=== PATIENT | male | born 1980 | race Caucasian/White ===

== ENCOUNTER 2024-11-30 14:40 | Emergency (ER) | payer OTHER, SELFPAY ==
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
--- OUTSIDE RECORDS SUMMARY | 2024-11-30 14:42 | XMS_ITS | Clinical Summary ---
Author Organization [facility] Address [address] [place] [address] Care Team Providers Care Home Lending Officer Name Role Phone Jemal Hoffmann MD Primary Care Provider [phone] Source Comments [facility],non-owned Affiliates and Associated Physician Practices is amultiple site organization consisting of ambulatory clinics and hospital sitesin [place], [place], [place] and [place]. This disclosure is being madepursuant to the Care Everywhere program and may not contain all information available regarding this patient. Last updated 18.[facility] Allergies No known active allergies Medications * Be aware that medications may not be up to date on this document. Alwaysverify current medications with the patient. hydrocodone-acet aminophen (VICODIN) 5-500 MG tablet Take 1-2 Tabs by mouth 4 times daily as needed for Pain. 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 Gender Identity Not on file Sexual Orientation Not on file Last Filed Vital Signs Vital Sign Reading Time Taken Comments Blood Pressure 140/88 09/04/2010 5:03 PM CDT Pulse 78 09/04/2010 5:03 PM CDT Temperature 36.9 C (98.5 F) 09/04/2010 3:12 PM CDT Respiratory Rate 18 09/04/2010 5:03 PM CDT Oxygen Saturation 99% 09/04/2010 5:03 PM CDT Inhaled Oxygen Concentration - - Weight 117.9 kg (260 lb) 09/04/2010 3:12 PM CDT Height 180.3 cm (5' 11) 09/04/2010 3:12 PM CDT Body Mass Index 36.26 09/04/2010 3:12 PM CDT Plan of Treatment Health Maintenance Due Date Last Done Comments LIPID TESTING 1980 HIV SCREENING 09/23/1995 HEPATITIS C SCREENING 09/18/1998 DTAP/TDAP/TD VACCINES (1 - Tdap) 09/23/1999 HEPATITIS B VACCINE (1 of 3 - 19+ 3-dose series) 09/23/1999 HPV VACCINE (1 - 3-dose SCDM series) 09/23/2007 COVID-19 VACCINE ( - 2023-2 5 season) 2023 DEPRESSION SCREENING 04/23/2024 INFLUENZA VACCINE (#1) 2024 ZOSTER VACCINE (1 of 2) 2030 HIB VACCINE Aged Out No longer eligi ble based on patient's age to complete this topic MENINGOCOCCAL (Group B) VACC INE SHARED DECISION-MAKING Aged Out No longer eligibl e based on patient's age to complete this topic MENINGOCOCCAL GROUPS A/C/Y/W VACCINE Aged Out No longer eligible b ased on patient's age to complete this topic PNEUMOCOCCAL VACCINE Aged Out No long er eligible based on patient's age to complete this topic Care Teams Home Lending Officer Relationship Specialty Start Date End Date Jemal Hoffmann MD [address] [place] [address] PCP - General 09/04/10
[2024-11-30 14:51] VITALS: BP 175/113; PULSE 95; RESP 18; TEMP 36.3; O2SAT 97
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
[2024-11-30] MEDS: diazePAM INJ (*CRX) 10 MG/2 ML SYRINGE 5 MG IV PUSH (16:54)
[2024-11-30] MEDS: ACETAMINOPHEN 500 MG TABLET 1000 MG PO (16:54)
[2024-11-30 16:57] LABS: Hematocrit 42.8 % (42.0-52.0); Hemoglobin 14.3 g/dL (14.0-18.0); Immature Granulocyte Percent A 0.4 % (0-0.5); Lymphocytes Absolute Auto 1.89 K/mm3 (0.9-3.2); Mean Corpuscular HGB Conc 33.4 g/dl (32-36); Mean Corpuscular Hemoglobin 29.0 pg (26-34); Mean Corpuscular Volume 86.8 fl (80-100); Nucleated Red Blood Cells Absolute Auto 0.000 K/mm3 (0.0-0.012); Nucleated Red Blood Cells Perc 0.0 % (0.0-0.2); Platelet Count Result 276 k/mm3 (150-375); Red Blood Count 4.93 M/mm3 (4.6-6.20); White Blood Count 6.8 K/mm3 (4.5-10.0)
[2024-11-30 16:58] VITALS: BP 162/106; PULSE 88; RESP 20; O2SAT 97
[2024-11-30 17:05] LABS: Alanine Aminotransferase 29 U/L (6-50); Albumin Level 4.2 g/dL (3.5-5.1); Alkaline Phosphatase 96 U/L (38-126); Anion Gap 6 mmol/L (4-12); Aspartate Amino Transferase 28 U/L (17-59); Bilirubin,Total 0.6 mg/dL (0.2-1.3); Blood Urea Nitrogen 9 mg/dL (9-20); Calcium 9.0 mg/dL (8.4-10.2); Carbon Dioxide 27 mmol/L (22-30); Chloride 105 mmol/L (98-107); Estimated CRCL calculation 132 ml/min; Estimated Glomerular Filt Rate > 60; Glucose 110 mg/dL (65-110); Potassium 3.2 mmol/L (3.4-5.0); Sodium 138 mmol/L (137-145); Total Protein 7.7 g/dL (6.3-8.2)
[2024-11-30 17:22] LABS: Magnesium 2.2 mg/dL (1.6-2.3)
[2024-11-30] MEDS: POTASSIUM CHLORIDE 20 MEQ ER TABLET 40 MEQ PO (17:40)
--- NOTE | 2024-11-30 17:43 | PC.NURSE ---
Per josep Hernandez to give pt food. Pt provided with a sandwich, drink, and snacks. Updated on POC. Pt continues to deny pain.
--- OUTSIDE RECORDS SUMMARY | 2024-11-30 18:05 | XMS_ITS | Clinical Summary ---
Author Organization [facility] [place] Address [address] [place] [address] Care Team Providers Care Commissions Specialist Name Role Phone Jemal Hoffmann MD Primary Care Provider [phone] Source Comments [facility],non-owned Affiliates and Associated Physician Practices is amultiple site organization consisting of ambulatory clinics and hospital sitesin [place], [place], [place] and [place]. This disclosure is being madepursuant to the Care Everywhere program and may not contain all information available regarding this patient. 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
[2024-11-30 18:24] VITALS: BP 175/99; PULSE 85; RESP 18; O2SAT 98
[2024-11-30 20:09] VITALS: BP 174/90; PULSE 81; RESP 17; O2SAT 100
== END 2024-11-30 20:11 | disposition home or self-care (01) ==
PROVIDERS: Emergency Provider Physician Assistant; PCP Family Medicine
DX: S53.401A Unspecified sprain of right elbow, initial encounter (principal); E87.6 Hypokalemia; V48.5XXA Car driver injured in noncollision transport accident in traffic accident, initial encounter; S22.080A Wedge compression fracture of T11-T12 vertebra, initial encounter for closed fracture
CPT/HCPCS: 36415; 70450; 71260; 72125; 73080; 74177; 80053; 83735; 85025; 96374; 99284; A9270; J3360; Q9967